=== PATIENT | female | born 1930 | race Caucasian/White ===

== ENCOUNTER 2017-07-07 10:11 | Inpatient (IN) | payer OTHER ==
[~2017-07-07] VITALS: Ht 167.6 cm; Wt 64.9 kg
[2017-07-07 10:11] VITALS: BP_SYST 134
[~2017-07-07 10:11] MED LIST: ACET-1010 PO; AMLO1TAB15 PO; AMLO5TAB4 PO; CAT.1 PO; DIVA500T7 PO; DOCU-144 PO; LEVO150T8 PO; LOSA100T11 PO; NEBI20TA2 PO; NEPH PO; SENN8.6T19 PO
[2017-07-07 10:52] LABS: BASOPHILS # (AUTO) 0.1 K/uL (0.0-0.2); BASOPHILS % (AUTO) 0.4 % (0.0-2.0); EOSINOPHILS # (AUTO) 0.2 K/uL (0.0-0.4); EOSINOPHILS % (AUTO) 1.3 % (0.0-4.0); HEMATOCRIT 25.3 % (36-48); LYMPHOCYTES # (AUTO) 2.6 K/uL (1.0-5.5); LYMPHOCYTES % (AUTO) 18.7 % (20.5-51.5); MEAN CORPUSCULAR HEMOGLOBIN 31 pg (27-31); MEAN CORPUSCULAR HGB CONC 33 % (32-36); MEAN CORPUSCULAR VOLUME 94 fL (79.0-98.0); MONOCYTES # (AUTO) 1.8 K/uL (0.0-1.0); MONOCYTES % (AUTO) 13.3 % (1.7-9.3); NEUTROPHILS # (AUTO) 9.1 K/uL (1.8-7.7); NEUTROPHILS % (AUTO) 66.3 % (40.0-70.0); PLATELET COUNT (AUTO) 527 K/uL (130-430); RED BLOOD CELL COUNT(AUTO) 2.69 MIL/uL (4.2-6.2); WHITE BLOOD COUNT (AUTO) 13.8 K/uL (4.8-10.8)
[2017-07-07 10:53] LABS: HEMOGLOBIN 8.3 g/dL (12.0-16.0)
[2017-07-07 11:03] LABS: PROTHROMBIN TIME 10.6 SECS (9.5-12.5)
[2017-07-07 11:23] LABS: ALANINE AMINOTRANSFERASE 17 U/L (12-78); TOTAL BILIRUBIN 0.2 mg/dL (0.0-1.0)
[2017-07-07 11:24] LABS: ANION GAP 7 (5-15); CALCIUM 9.2 mg/dL (8.4-11.0); CHLORIDE 106 mmol/L (98-107); GLUCOSE 93 mg/dL (70-99); POTASSIUM 5.3 mmol/L (3.5-5.1); SODIUM SERUM 138 mmol/L (136-145); UREA NITROGEN, BLOOD 30 mg/dL (8-21)
[2017-07-07 11:25] LABS: ALBUMIN 1.8 g/dL (3.4-4.8); ASPARTATE AMINOTRANSFERASE 19 U/L (10-37); CREATININE 2.34 mg/dL (0.55-1.30)
[2017-07-07] MEDS ORDERED: LEVOFLOXACIN 500 MG/D5W 100 ML IV ONE (13:45)
[2017-07-07 14:12] VITALS: BP_SYST 119
[2017-07-07] MEDS: NEPHROVITE, (FOLIC ACID/VITAMIN B COMP W-C 1 TAB) PO SCH (16:45)
[2017-07-07] MEDS ORDERED: DOCUSATE SODIUM 100 MG CAPSULE PO SCH (16:45)
[2017-07-07] MEDS: LEVOTHYROXINE SODIUM 0.15 MG TABLET PO SCH (16:45)
[2017-07-07] MEDS ORDERED: SENNOSIDES 8.6 MG TABLET PO PRN (16:45)
[2017-07-07] MEDS: DIVALPROEX SODIUM 500 MG TABLET( DEPAKOTE) PO SCH (16:45)
[2017-07-07] MEDS: ACETAMINOPHEN 500 MG TABLET PO SCH ×2 (16:45→21:48)
[2017-07-07] MEDS ORDERED: IPRATROPIUM/ALBUTEROL SULFATE 3 ML AMPUL.NEB INH PRN (17:00)
[2017-07-07] MEDS ORDERED: SODIUM POLYSTYRENE SULFONATE 15 GM/60 ML UDBTL PO SCH (17:00)
[2017-07-07 17:52] VITALS: BP_SYST 119
[2017-07-07] MEDS: EPOETIN ALFA 4,000 UNITS/ML VIAL SUBCUT SCH (18:26)
[2017-07-07] MEDS: QUEtiapine FUMARATE 25 MG TABLET PO SCH (18:26)
[2017-07-07] MEDS: PIPERACILLIN/TAZO 2.25G/DEX-IS 50 ML IV SCH ×2 (18:33→23:29)
[2017-07-07] MEDS: SOD FERRIC GLUC COMPLEX/SUC 125 MG in NS 100 ML IV SCH (19:17)
[2017-07-07] MEDS: IPRATROPIUM/ALBUTEROL SULFATE 3 ML AMPUL.NEB INH SCH (19:34)
[2017-07-07 20:00] VITALS: BP_SYST 128
[2017-07-07] MEDS: AZITHROMYCIN 500 MG in NS 250 ML IV SCH (21:46)
[2017-07-07] MEDS: DOCUSATE SODIUM 100 MG CAPSULE PO SCH (21:47)
[2017-07-07] MEDS: CARVEDILOL 6.25 MG TABLET (COREG) PO SCH (21:47)
[2017-07-08] MEDS: IPRATROPIUM/ALBUTEROL SULFATE 3 ML AMPUL.NEB INH SCH ×4 (00:32→19:51)
[2017-07-08 04:00] VITALS: BP_SYST 145
[2017-07-08] MEDS: ACETAMINOPHEN 500 MG TABLET PO SCH ×3 (06:11→22:05)
[2017-07-08] MEDS: PIPERACILLIN/TAZO 2.25G/DEX-IS 50 ML IV SCH ×3 (06:11→20:29)
[2017-07-08 07:21] LABS: HEMATOCRIT 22.9 % (36-48); HEMOGLOBIN 7.6 g/dL (12.0-16.0); MEAN CORPUSCULAR HEMOGLOBIN 31 pg (27-31); MEAN CORPUSCULAR HGB CONC 33 % (32-36); MEAN CORPUSCULAR VOLUME 93 fL (79.0-98.0); PLATELET COUNT (AUTO) 504 K/uL (130-430); RED BLOOD CELL COUNT(AUTO) 2.47 MIL/uL (4.2-6.2); RED CELL DISTRIBUTION WIDTH 18.1 % (9.0-15.0)
[2017-07-08 07:32] LABS: ANION GAP 5 (5-15); CALCIUM 8.9 mg/dL (8.4-11.0); CHLORIDE 108 mmol/L (98-107); CREATININE 2.24 mg/dL (0.55-1.30); GLUCOSE 75 mg/dL (70-99); POTASSIUM 5.6 mmol/L (3.5-5.1); SODIUM SERUM 140 mmol/L (136-145); UREA NITROGEN, BLOOD 26 mg/dL (8-21)
[2017-07-08 07:47] LABS: FREE T4 (FREE THYROXINE) 0.5 ng/dl (0.8-1.5); THYROID STIMULATING HORMONE 72.57 uIu/mL (0.36-3.74)
[2017-07-08 07:59] LABS: WHITE BLOOD COUNT (AUTO) 11.4 K/uL (4.8-10.8)
[2017-07-08 08:18] VITALS: BP_SYST 142
[2017-07-08] MEDS: DIVALPROEX SODIUM 500 MG TABLET( DEPAKOTE) PO SCH (08:38)
[2017-07-08] MEDS: CYANOCOBALAMIN 1000 mCg TABLET PO SCH (08:39)
[2017-07-08] MEDS: LOSARTAN POTASSIUM 50 MG TABLET (COZAAR) PO SCH (08:39)
[2017-07-08] MEDS: CHOLECALCIFEROL (VITAMIN D3) 2,000 UNIT TABLET PO SCH (08:39)
[2017-07-08] MEDS: NEPHROVITE, (FOLIC ACID/VITAMIN B COMP W-C 1 TAB) PO SCH (08:40)
[2017-07-08] MEDS: DOCUSATE SODIUM 100 MG CAPSULE PO SCH ×2 (08:40→22:03)
[2017-07-08] MEDS: LEVOTHYROXINE SODIUM 0.15 MG TABLET PO SCH (08:40)
[2017-07-08] MEDS: CARVEDILOL 6.25 MG TABLET (COREG) PO SCH ×2 (08:42→22:03)
[2017-07-08] MEDS ORDERED: cloNIDine HCL 0.1 MG TABLET PO SCH (09:00)
[2017-07-08] MEDS ORDERED: amLODIPine BESYLATE 5 MG TABLET PO SCH (09:00)
[2017-07-08] MEDS ORDERED: NEBIVOLOL HCL 5 MG TABLET PO SCH (09:00)
[2017-07-08 09:29] LABS: ATYPICAL LYMPHOCYTES % 0 % (0-0); BAND % (MANUAL) 0 % (0-6); LYMPHOCYTES % (MANUAL) 31 % (20-46)
[2017-07-08 09:30] LABS: BASOPHILS % (MANUAL) 0 % (0-2); EOSINOPHILS % (MANUAL) 2 % (0-7); MONOCYTES % (MANUAL) 11 % (0-11)
[2017-07-08] MEDS ORDERED: SODIUM POLYSTYRENE SULFONATE 15 GM/60 ML UDBTL RC ONE (11:30)
[2017-07-08 12:00] VITALS: BP_SYST 134
[2017-07-08 17:07] VITALS: BP_SYST 125
[2017-07-08] MEDS: SOD FERRIC GLUC COMPLEX/SUC 125 MG in NS 100 ML IV SCH (18:16)
[2017-07-08] MEDS: QUEtiapine FUMARATE 25 MG TABLET PO SCH (18:16)
[2017-07-08 19:50] VITALS: BP_SYST 139
[2017-07-08] MEDS: AZITHROMYCIN 500 MG in NS 250 ML IV SCH (22:00)
[2017-07-09 00:09] VITALS: BP_SYST 143
[2017-07-09] MEDS: IPRATROPIUM/ALBUTEROL SULFATE 3 ML AMPUL.NEB INH SCH ×4 (00:37→19:40)
[2017-07-09] MEDS: PIPERACILLIN/TAZO 2.25G/DEX-IS 50 ML IV SCH ×4 (01:05→17:52)
[2017-07-09 04:01] VITALS: BP_SYST 142
[2017-07-09] MEDS: ACETAMINOPHEN 500 MG TABLET PO SCH ×3 (06:23→22:29)
[2017-07-09 06:45] LABS: BASOPHILS % (AUTO) 0.4 % (0.0-2.0); EOSINOPHILS # (AUTO) 0.7 K/uL (0.0-0.4); EOSINOPHILS % (AUTO) 5.8 % (0.0-4.0); HEMATOCRIT 27.7 % (36-48); HEMOGLOBIN 9.2 g/dL (12.0-16.0); LYMPHOCYTES # (AUTO) 2.8 K/uL (1.0-5.5); LYMPHOCYTES % (AUTO) 23.4 % (20.5-51.5); MEAN CORPUSCULAR HEMOGLOBIN 31 pg (27-31); MEAN CORPUSCULAR HGB CONC 33 % (32-36); MEAN CORPUSCULAR VOLUME 94 fL (79.0-98.0); MONOCYTES # (AUTO) 1.8 K/uL (0.0-1.0); MONOCYTES % (AUTO) 15.1 % (1.7-9.3); NEUTROPHILS # (AUTO) 6.8 K/uL (1.8-7.7); NEUTROPHILS % (AUTO) 55.3 % (40.0-70.0); PLATELET COUNT (AUTO) 444 K/uL (130-430); RED BLOOD CELL COUNT(AUTO) 2.94 MIL/uL (4.2-6.2); RED CELL DISTRIBUTION WIDTH 17.1 % (9.0-15.0); WHITE BLOOD COUNT (AUTO) 12.1 K/uL (4.8-10.8)
[2017-07-09 06:59] LABS: ANION GAP 7 (5-15); CHLORIDE 107 mmol/L (98-107); CREATININE 2.17 mg/dL (0.55-1.30); GLUCOSE 90 mg/dL (70-99); POTASSIUM 5.1 mmol/L (3.5-5.1); SODIUM SERUM 141 mmol/L (136-145); UREA NITROGEN, BLOOD 25 mg/dL (8-21)
[2017-07-09 07:10] LABS: FREE T4 (FREE THYROXINE) 0.5 ng/dl (0.8-1.5)
[2017-07-09 07:54] LABS: TOTAL IRON BIND. CAPACITY 122 ug/dL (250-450)
[2017-07-09 08:00] VITALS: BP_SYST 110
[2017-07-09] MEDS: LEVOTHYROXINE SODIUM 0.15 MG TABLET PO SCH (08:33)
[2017-07-09] MEDS: CHOLECALCIFEROL (VITAMIN D3) 2,000 UNIT TABLET PO SCH (08:34)
[2017-07-09] MEDS: NEPHROVITE, (FOLIC ACID/VITAMIN B COMP W-C 1 TAB) PO SCH (08:34)
[2017-07-09] MEDS: CYANOCOBALAMIN 1000 mCg TABLET PO SCH (08:34)
[2017-07-09] MEDS: DOCUSATE SODIUM 100 MG CAPSULE PO SCH ×2 (08:34→22:42)
[2017-07-09] MEDS: DIVALPROEX SODIUM 500 MG TABLET( DEPAKOTE) PO SCH (08:34)
[2017-07-09] MEDS: CARVEDILOL 6.25 MG TABLET (COREG) PO SCH ×2 (08:35→22:44)
[2017-07-09] MEDS: LOSARTAN POTASSIUM 50 MG TABLET (COZAAR) PO SCH (08:35)
[2017-07-09 10:04] LABS: RETICULOCYTE COUNT 2.4 % (0.5-1.5)
[2017-07-09 11:36] VITALS: BP_SYST 140
[2017-07-09 17:45] VITALS: BP_SYST 144
[2017-07-09] MEDS: SOD FERRIC GLUC COMPLEX/SUC 125 MG in NS 100 ML IV SCH (17:51)
[2017-07-09] MEDS: EPOETIN ALFA 4,000 UNITS/ML VIAL SUBCUT SCH (17:52)
[2017-07-09] MEDS: QUEtiapine FUMARATE 25 MG TABLET PO SCH (17:53)
[2017-07-09 20:00] VITALS: BP_SYST 138
[2017-07-09] MEDS: AZITHROMYCIN 500 MG in NS 250 ML IV SCH (22:29)
[2017-07-10] VITALS (7 sets, daily range): BP systolic 132–155
[2017-07-10] MEDS: PIPERACILLIN/TAZO 2.25G/DEX-IS 50 ML IV SCH ×4 (00:04→17:58)
[2017-07-10] MEDS: IPRATROPIUM/ALBUTEROL SULFATE 3 ML AMPUL.NEB INH SCH ×4 (00:21→23:02)
[2017-07-10] MEDS: ACETAMINOPHEN 500 MG TABLET PO SCH ×4 (05:22→22:41)
[2017-07-10 07:22] LABS: HEMATOCRIT 28.7 % (36-48); HEMOGLOBIN 9.4 g/dL (12.0-16.0); MEAN CORPUSCULAR HEMOGLOBIN 31 pg (27-31); MEAN CORPUSCULAR HGB CONC 33 % (32-36); MEAN CORPUSCULAR VOLUME 94 fL (79.0-98.0); PLATELET COUNT (AUTO) 446 K/uL (130-430); RED BLOOD CELL COUNT(AUTO) 3.05 MIL/uL (4.2-6.2); RED CELL DISTRIBUTION WIDTH 17.9 % (9.0-15.0); WHITE BLOOD COUNT (AUTO) 13.1 K/uL (4.8-10.8)
[2017-07-10 08:24] LABS: BASOPHILS % (MANUAL) 0 % (0-2); EOSINOPHILS % (MANUAL) 4 % (0-7); LYMPHOCYTES % (MANUAL) 28 % (20-46); MONOCYTES % (MANUAL) 9 % (0-11)
[2017-07-10] MEDS: LEVOTHYROXINE SODIUM 0.1 MG VIAL IVP SCH (09:14)
[2017-07-10] MEDS: NEPHROVITE, (FOLIC ACID/VITAMIN B COMP W-C 1 TAB) PO SCH (09:15)
[2017-07-10] MEDS: DIVALPROEX SODIUM 500 MG TABLET( DEPAKOTE) PO SCH (09:15)
[2017-07-10] MEDS: CHOLECALCIFEROL (VITAMIN D3) 2,000 UNIT TABLET PO SCH (09:15)
[2017-07-10] MEDS: CARVEDILOL 6.25 MG TABLET (COREG) PO SCH ×2 (09:15→22:44)
[2017-07-10] MEDS: DOCUSATE SODIUM 100 MG CAPSULE PO SCH ×2 (09:15→22:37)
[2017-07-10] MEDS: LOSARTAN POTASSIUM 50 MG TABLET (COZAAR) PO SCH (09:16)
[2017-07-10] MEDS: CYANOCOBALAMIN 1000 mCg TABLET PO SCH (09:16)
[2017-07-10 11:23] LABS: BASOPHILS % (AUTO) 0.2 % (0.0-2.0); EOSINOPHILS # (AUTO) 0.6 K/uL (0.0-0.4); EOSINOPHILS % (AUTO) 5.3 % (0.0-4.0); HEMATOCRIT 28.7 % (36-48); HEMOGLOBIN 9.7 g/dL (12.0-16.0); LYMPHOCYTES # (AUTO) 2.5 K/uL (1.0-5.5); LYMPHOCYTES % (AUTO) 21.1 % (20.5-51.5); MEAN CORPUSCULAR HEMOGLOBIN 32 pg (27-31); MEAN CORPUSCULAR HGB CONC 34 % (32-36); MEAN CORPUSCULAR VOLUME 95 fL (79.0-98.0); MONOCYTES # (AUTO) 1.5 K/uL (0.0-1.0); MONOCYTES % (AUTO) 12.6 % (1.7-9.3); NEUTROPHILS # (AUTO) 7.3 K/uL (1.8-7.7); NEUTROPHILS % (AUTO) 60.8 % (40.0-70.0); PLATELET COUNT (AUTO) 423 K/uL (130-430); RED BLOOD CELL COUNT(AUTO) 3.04 MIL/uL (4.2-6.2); WHITE BLOOD COUNT (AUTO) 11.9 K/uL (4.8-10.8)
[2017-07-10 11:27] LABS: ANION GAP 7 (5-15); CALCIUM 8.4 mg/dL (8.4-11.0); CHLORIDE 104 mmol/L (98-107); GLUCOSE 64 mg/dL (70-99); POTASSIUM 4.6 mmol/L (3.5-5.1); SODIUM SERUM 136 mmol/L (136-145); UREA NITROGEN, BLOOD 28 mg/dL (8-21)
[2017-07-10 13:07] LABS: FOLATE (FOLIC ACID) >20.0 ng/mL (>3.0)
[2017-07-10] MEDS ORDERED: FUROSEMIDE 40 MG/4 ML VIAL IVP ONE (14:15)
[2017-07-10 14:45] LABS: FERRITIN 833 ng/mL (15-150)
[2017-07-10] MEDS: QUEtiapine FUMARATE 25 MG TABLET PO SCH (18:30)
[2017-07-10 18:31] LABS: BILIRUBIN,URINE NEGATIVE (NEGATIVE); BLOOD, URINE NEGATIVE (NEGATIVE); CLARITY/URINE CLEAR (CLEAR); GLUCOSE,URINE NEGATIVE (NEGATIVE); KETONES,URINE NEGATIVE (NEGATIVE); LEUKOCYTE ESTERASE ,URINE NEGATIVE (NEGATIVE); NITRITE, URINE NEGATIVE (NEGATIVE); PROTEIN URINE NEGATIVE (NEGATIVE); UROBILINOGEN,URINE 0.2 (0.2-1.0)
[2017-07-10 18:32] LABS: COLOR,URINE STRAW (YELLOW)
[2017-07-10] MEDS: amLODIPine BESYLATE 5 MG TABLET PO SCH (22:41)
[2017-07-10] MEDS: AZITHROMYCIN 500 MG in NS 250 ML IV SCH (22:42)
[2017-07-10] MEDS: LORazepam 2 MG/ML VIAL IVP PRN (23:36)
[2017-07-11] VITALS (7 sets, daily range): BP systolic 120–150
[2017-07-11] MEDS: PIPERACILLIN/TAZO 2.25G/DEX-IS 50 ML IV SCH ×4 (00:54→17:42)
[2017-07-11] MEDS: IPRATROPIUM/ALBUTEROL SULFATE 3 ML AMPUL.NEB INH SCH ×3 (02:12→19:48)
[2017-07-11] MEDS: LORazepam 2 MG/ML VIAL IVP PRN (04:51)
[2017-07-11 06:27] LABS: EOSINOPHILS # (AUTO) 0.6 K/uL (0.0-0.4); LYMPHOCYTES % (AUTO) 21.9 % (20.5-51.5); MONOCYTES # (AUTO) 1.5 K/uL (0.0-1.0)
[2017-07-11 06:36] LABS: BASOPHILS % (AUTO) 0.2 % (0.0-2.0); HEMATOCRIT 29.4 % (36-48); HEMOGLOBIN 9.9 g/dL (12.0-16.0); LYMPHOCYTES # (AUTO) 2.7 K/uL (1.0-5.5); MEAN CORPUSCULAR HEMOGLOBIN 32 pg (27-31); MEAN CORPUSCULAR HGB CONC 34 % (32-36); MEAN CORPUSCULAR VOLUME 94 fL (79.0-98.0); MONOCYTES % (AUTO) 11.8 % (1.7-9.3); NEUTROPHILS # (AUTO) 7.7 K/uL (1.8-7.7); NEUTROPHILS % (AUTO) 61.1 % (40.0-70.0); PLATELET COUNT (AUTO) 410 K/uL (130-430); RED BLOOD CELL COUNT(AUTO) 3.14 MIL/uL (4.2-6.2); WHITE BLOOD COUNT (AUTO) 12.4 K/uL (4.8-10.8)
[2017-07-11 06:55] LABS: ALANINE AMINOTRANSFERASE 18 U/L (12-78); ALBUMIN 1.7 g/dL (3.4-4.8); ANION GAP 9 (5-15); ASPARTATE AMINOTRANSFERASE 28 U/L (10-37); BILIRUBIN,DIRECT 0.1 mg/dL (0.0-0.3); CALCIUM 8.5 mg/dL (8.4-11.0); CHLORIDE 104 mmol/L (98-107); CREATININE 2.18 mg/dL (0.55-1.30); FREE T4 (FREE THYROXINE) 0.5 ng/dl (0.8-1.5); GLUCOSE 75 mg/dL (70-99); LACTATE DEHYDROGENASE 214 U/L (81-234); POTASSIUM 4.4 mmol/L (3.5-5.1); SODIUM SERUM 138 mmol/L (136-145); TOTAL BILIRUBIN 0.2 mg/dL (0.0-1.0)
[2017-07-11 07:20] LABS: UREA NITROGEN, BLOOD 28 mg/dL (8-21)
[2017-07-11] MEDS: DOCUSATE SODIUM 100 MG CAPSULE PO SCH ×2 (09:18→22:58)
[2017-07-11] MEDS: CARVEDILOL 6.25 MG TABLET (COREG) PO SCH ×2 (09:18→23:00)
[2017-07-11] MEDS: DIVALPROEX SODIUM 500 MG TABLET( DEPAKOTE) PO SCH (09:19)
[2017-07-11] MEDS: CHOLECALCIFEROL (VITAMIN D3) 2,000 UNIT TABLET PO SCH (09:19)
[2017-07-11] MEDS: LOSARTAN POTASSIUM 50 MG TABLET (COZAAR) PO SCH (09:19)
[2017-07-11] MEDS: NEPHROVITE, (FOLIC ACID/VITAMIN B COMP W-C 1 TAB) PO SCH (09:19)
[2017-07-11] MEDS: CYANOCOBALAMIN 1000 mCg TABLET PO SCH (09:20)
[2017-07-11] MEDS: LEVOTHYROXINE SODIUM 0.1 MG VIAL IVP SCH (09:23)
[2017-07-11] MEDS: ACETAMINOPHEN 500 MG TABLET PO SCH ×2 (15:21→22:59)
[2017-07-11] MEDS: QUEtiapine FUMARATE 25 MG TABLET PO SCH (17:43)
[2017-07-11] MEDS: EPOETIN ALFA 4,000 UNITS/ML VIAL SUBCUT SCH (18:00)
[2017-07-11] MEDS: amLODIPine BESYLATE 5 MG TABLET PO SCH (22:59)
[2017-07-11] MEDS: AZITHROMYCIN 500 MG in NS 250 ML IV SCH (23:00)
[2017-07-12] MEDS: IPRATROPIUM/ALBUTEROL SULFATE 3 ML AMPUL.NEB INH SCH ×4 (01:13→19:42)
[2017-07-12] MEDS: PIPERACILLIN/TAZO 2.25G/DEX-IS 50 ML IV SCH ×5 (01:17→23:09)
[2017-07-12 03:29] VITALS: BP_SYST 140
[2017-07-12] MEDS: ACETAMINOPHEN 500 MG TABLET PO SCH ×3 (06:15→21:00)
[2017-07-12 06:53] LABS: ANION GAP 9 (5-15); CALCIUM 8.8 mg/dL (8.4-11.0); CHLORIDE 104 mmol/L (98-107); CREATININE 2.19 mg/dL (0.55-1.30); GLUCOSE 79 mg/dL (70-99); POTASSIUM 4.6 mmol/L (3.5-5.1); SODIUM SERUM 136 mmol/L (136-145); UREA NITROGEN, BLOOD 33 mg/dL (8-21)
[2017-07-12 07:39] LABS: BASOPHILS % (AUTO) 0.1 % (0.0-2.0); EOSINOPHILS # (AUTO) 0.6 K/uL (0.0-0.4); EOSINOPHILS % (AUTO) 4.8 % (0.0-4.0); HEMATOCRIT 28.3 % (36-48); HEMOGLOBIN 9.1 g/dL (12.0-16.0); LYMPHOCYTES # (AUTO) 3.1 K/uL (1.0-5.5); LYMPHOCYTES % (AUTO) 24.7 % (20.5-51.5); MEAN CORPUSCULAR HEMOGLOBIN 31 pg (27-31); MEAN CORPUSCULAR HGB CONC 32 % (32-36); MEAN CORPUSCULAR VOLUME 95 fL (79.0-98.0); MONOCYTES # (AUTO) 1.6 K/uL (0.0-1.0); NEUTROPHILS # (AUTO) 7.4 K/uL (1.8-7.7); PLATELET COUNT (AUTO) 402 K/uL (130-430); RED CELL DISTRIBUTION WIDTH 18.2 % (9.0-15.0); WHITE BLOOD COUNT (AUTO) 12.7 K/uL (4.8-10.8)
[2017-07-12 08:20] VITALS: BP_SYST 140
[2017-07-12 08:40] LABS: NEUTROPHILS % (AUTO) 57.4 % (40.0-70.0)
[2017-07-12] MEDS: LEVOTHYROXINE SODIUM 0.1 MG VIAL IVP SCH (08:56)
[2017-07-12] MEDS: LOSARTAN POTASSIUM 50 MG TABLET (COZAAR) PO SCH (08:57)
[2017-07-12] MEDS: CYANOCOBALAMIN 1000 mCg TABLET PO SCH (08:57)
[2017-07-12] MEDS: DIVALPROEX SODIUM 500 MG TABLET( DEPAKOTE) PO SCH (08:57)
[2017-07-12] MEDS: CHOLECALCIFEROL (VITAMIN D3) 2,000 UNIT TABLET PO SCH (08:58)
[2017-07-12] MEDS: DOCUSATE SODIUM 100 MG CAPSULE PO SCH ×2 (08:58→21:00)
[2017-07-12] MEDS: NEPHROVITE, (FOLIC ACID/VITAMIN B COMP W-C 1 TAB) PO SCH (08:58)
[2017-07-12] MEDS: CARVEDILOL 6.25 MG TABLET (COREG) PO SCH ×2 (08:58→21:01)
[2017-07-12] MEDS: cloNIDine HCL 0.2 MG TABLET PO PRN (11:32)
[2017-07-12 11:49] VITALS: BP_SYST 161
[2017-07-12 15:25] VITALS: BP_SYST 152
[2017-07-12] MEDS: QUEtiapine FUMARATE 25 MG TABLET PO SCH ×3 (17:02→17:43)
[2017-07-12 20:00] VITALS: BP_SYST 142
[2017-07-12] MEDS: amLODIPine BESYLATE 5 MG TABLET PO SCH (21:01)
[2017-07-12] MEDS: HEPARIN SODIUM,PORCINE 5000 UNITS/ML VIAL SUBCUT SCH (21:05)
[2017-07-13] VITALS (8 sets, daily range): BP systolic 114–158
[2017-07-13] MEDS: IPRATROPIUM/ALBUTEROL SULFATE 3 ML AMPUL.NEB INH SCH ×4 (01:00→19:48)
[2017-07-13] MEDS: LORazepam 2 MG/ML VIAL IVP PRN (01:50)
[2017-07-13] MEDS: PIPERACILLIN/TAZO 2.25G/DEX-IS 50 ML IV SCH ×3 (05:13→17:35)
[2017-07-13] MEDS: ACETAMINOPHEN 500 MG TABLET PO SCH ×3 (05:13→21:08)
[2017-07-13 07:08] LABS: ALANINE AMINOTRANSFERASE 19 U/L (12-78); ALBUMIN 1.8 g/dL (3.4-4.8); ANION GAP 8 (5-15); ASPARTATE AMINOTRANSFERASE 21 U/L (10-37); CALCIUM 8.8 mg/dL (8.4-11.0); CHLORIDE 105 mmol/L (98-107); CREATININE 2.05 mg/dL (0.55-1.30); GLUCOSE 90 mg/dL (70-99); POTASSIUM 4.5 mmol/L (3.5-5.1); SODIUM SERUM 138 mmol/L (136-145); TOTAL BILIRUBIN 0.2 mg/dL (0.0-1.0); UREA NITROGEN, BLOOD 31 mg/dL (8-21)
[2017-07-13 07:13] LABS: HEMATOCRIT 28.5 % (36-48); HEMOGLOBIN 9.7 g/dL (12.0-16.0); MEAN CORPUSCULAR HEMOGLOBIN 32 pg (27-31); MEAN CORPUSCULAR HGB CONC 34 % (32-36); MEAN CORPUSCULAR VOLUME 95 fL (79.0-98.0); PLATELET COUNT (AUTO) 349 K/uL (130-430); RED BLOOD CELL COUNT(AUTO) 3.01 MIL/uL (4.2-6.2); RED CELL DISTRIBUTION WIDTH 17.4 % (9.0-15.0); WHITE BLOOD COUNT (AUTO) 10.9 K/uL (4.8-10.8)
[2017-07-13] MEDS: CHOLECALCIFEROL (VITAMIN D3) 2,000 UNIT TABLET PO SCH (08:20)
[2017-07-13] MEDS: LOSARTAN POTASSIUM 50 MG TABLET (COZAAR) PO SCH (08:20)
[2017-07-13] MEDS: NEPHROVITE, (FOLIC ACID/VITAMIN B COMP W-C 1 TAB) PO SCH (08:20)
[2017-07-13] MEDS: DOCUSATE SODIUM 100 MG CAPSULE PO SCH ×2 (08:20→21:07)
[2017-07-13] MEDS: DIVALPROEX SODIUM 500 MG TABLET( DEPAKOTE) PO SCH (08:21)
[2017-07-13] MEDS: CYANOCOBALAMIN 1000 mCg TABLET PO SCH (08:21)
[2017-07-13] MEDS: CARVEDILOL 6.25 MG TABLET (COREG) PO SCH ×2 (08:22→21:08)
[2017-07-13] MEDS: HEPARIN SODIUM,PORCINE 5000 UNITS/ML VIAL SUBCUT SCH ×2 (08:42→21:09)
[2017-07-13] MEDS: LEVOTHYROXINE SODIUM 0.1 MG VIAL IVP SCH (08:52)
[2017-07-13 09:31] LABS: BAND % (MANUAL) 4 % (0-6); BASOPHILS % (MANUAL) 0 % (0-2); EOSINOPHILS % (MANUAL) 5 % (0-7); LYMPHOCYTES % (MANUAL) 35 % (20-46); MONOCYTES % (MANUAL) 9 % (0-11)
[2017-07-13] MEDS: QUEtiapine FUMARATE 25 MG TABLET PO SCH (17:08)
[2017-07-13] MEDS: amLODIPine BESYLATE 5 MG TABLET PO SCH (21:08)
[2017-07-14] MEDS: PIPERACILLIN/TAZO 2.25G/DEX-IS 50 ML IV SCH (00:10)
[2017-07-14 00:43] VITALS: BP_SYST 158
[2017-07-14] MEDS: IPRATROPIUM/ALBUTEROL SULFATE 3 ML AMPUL.NEB INH SCH ×4 (01:08→19:51)
[2017-07-14 03:42] VITALS: BP_SYST 160
[2017-07-14] MEDS: ACETAMINOPHEN 500 MG TABLET PO SCH ×3 (06:00→22:17)
[2017-07-14 08:25] VITALS: BP_SYST 153
[2017-07-14] MEDS: DOCUSATE SODIUM 100 MG CAPSULE PO SCH ×2 (10:07→22:17)
[2017-07-14] MEDS: LOSARTAN POTASSIUM 50 MG TABLET (COZAAR) PO SCH (10:07)
[2017-07-14] MEDS: CHOLECALCIFEROL (VITAMIN D3) 2,000 UNIT TABLET PO SCH (10:07)
[2017-07-14] MEDS: CYANOCOBALAMIN 1000 mCg TABLET PO SCH (10:07)
[2017-07-14] MEDS: NEPHROVITE, (FOLIC ACID/VITAMIN B COMP W-C 1 TAB) PO SCH (10:07)
[2017-07-14] MEDS: CARVEDILOL 6.25 MG TABLET (COREG) PO SCH ×2 (10:08→22:20)
[2017-07-14] MEDS: DIVALPROEX SODIUM 500 MG TABLET( DEPAKOTE) PO SCH (10:08)
[2017-07-14] MEDS: HEPARIN SODIUM,PORCINE 5000 UNITS/ML VIAL SUBCUT SCH ×2 (10:10→22:21)
[2017-07-14] MEDS: LEVOTHYROXINE SODIUM 0.1 MG VIAL IVP SCH (10:17)
[2017-07-14 11:30] VITALS: BP_SYST 149
[2017-07-14 15:37] VITALS: BP_SYST 157
[2017-07-14] MEDS: QUEtiapine FUMARATE 25 MG TABLET PO SCH (18:13)
[2017-07-14] MEDS: EPOETIN ALFA 4,000 UNITS/ML VIAL SUBCUT SCH (18:15)
[2017-07-14 20:00] VITALS: BP_SYST 140
[2017-07-14] MEDS: amLODIPine BESYLATE 5 MG TABLET PO SCH (22:19)
[2017-07-15] VITALS (7 sets, daily range): BP systolic 138–185
[2017-07-15] MEDS: IPRATROPIUM/ALBUTEROL SULFATE 3 ML AMPUL.NEB INH SCH ×4 (01:17→20:43)
[2017-07-15] MEDS: ACETAMINOPHEN 500 MG TABLET PO SCH ×3 (05:35→21:59)
[2017-07-15 07:16] LABS: BASOPHILS % (AUTO) 0.4 % (0.0-2.0); EOSINOPHILS # (AUTO) 0.6 K/uL (0.0-0.4); EOSINOPHILS % (AUTO) 4.8 % (0.0-4.0); HEMATOCRIT 30.1 % (36-48); HEMOGLOBIN 10.1 g/dL (12.0-16.0); LYMPHOCYTES % (AUTO) 25.8 % (20.5-51.5); MEAN CORPUSCULAR HEMOGLOBIN 32 pg (27-31); MEAN CORPUSCULAR HGB CONC 33 % (32-36); MEAN CORPUSCULAR VOLUME 95 fL (79.0-98.0); MONOCYTES # (AUTO) 1.5 K/uL (0.0-1.0); MONOCYTES % (AUTO) 12.9 % (1.7-9.3); NEUTROPHILS # (AUTO) 6.5 K/uL (1.8-7.7); NEUTROPHILS % (AUTO) 56.1 % (40.0-70.0); PLATELET COUNT (AUTO) 304 K/uL (130-430); RED BLOOD CELL COUNT(AUTO) 3.17 MIL/uL (4.2-6.2); RED CELL DISTRIBUTION WIDTH 18.3 % (9.0-15.0); WHITE BLOOD COUNT (AUTO) 11.6 K/uL (4.8-10.8)
[2017-07-15 07:54] LABS: ANION GAP 5 (5-15); CALCIUM 9.4 mg/dL (8.4-11.0); CHLORIDE 107 mmol/L (98-107); CREATININE 1.72 mg/dL (0.55-1.30); GLUCOSE 83 mg/dL (70-99); POTASSIUM 4.3 mmol/L (3.5-5.1); SODIUM SERUM 139 mmol/L (136-145); UREA NITROGEN, BLOOD 30 mg/dL (8-21)
[2017-07-15] MEDS: CYANOCOBALAMIN 1000 mCg TABLET PO SCH (08:25)
[2017-07-15] MEDS: LEVOTHYROXINE SODIUM 0.1 MG VIAL IVP SCH (08:25)
[2017-07-15] MEDS: CHOLECALCIFEROL (VITAMIN D3) 2,000 UNIT TABLET PO SCH (08:25)
[2017-07-15] MEDS: NEPHROVITE, (FOLIC ACID/VITAMIN B COMP W-C 1 TAB) PO SCH (08:26)
[2017-07-15] MEDS: DOCUSATE SODIUM 100 MG CAPSULE PO SCH ×2 (08:26→20:44)
[2017-07-15] MEDS: CARVEDILOL 6.25 MG TABLET (COREG) PO SCH ×2 (08:27→20:47)
[2017-07-15] MEDS: LOSARTAN POTASSIUM 50 MG TABLET (COZAAR) PO SCH (08:27)
[2017-07-15] MEDS: HEPARIN SODIUM,PORCINE 5000 UNITS/ML VIAL SUBCUT SCH ×2 (08:30→20:50)
[2017-07-15] MEDS: DIVALPROEX SODIUM 500 MG TABLET( DEPAKOTE) PO SCH (08:33)
[2017-07-15 08:48] LABS: FREE T4 (FREE THYROXINE) 0.5 ng/dl (0.8-1.5)
[2017-07-15 08:49] LABS: THYROID STIMULATING HORMONE 68.83 uIu/mL (0.36-3.74)
[2017-07-15] MEDS: cloNIDine HCL 0.2 MG TABLET PO PRN (15:58)
[2017-07-15] MEDS: QUEtiapine FUMARATE 25 MG TABLET PO SCH (20:02)
[2017-07-15] MEDS: amLODIPine BESYLATE 5 MG TABLET PO SCH (20:48)
[2017-07-16] MEDS: IPRATROPIUM/ALBUTEROL SULFATE 3 ML AMPUL.NEB INH SCH ×4 (01:00→19:45)
[2017-07-16 03:51] VITALS: BP_SYST 122
[2017-07-16] MEDS: ACETAMINOPHEN 500 MG TABLET PO SCH ×3 (06:00→21:05)
[2017-07-16 08:00] VITALS: BP_SYST 143
[2017-07-16] MEDS: DOCUSATE SODIUM 100 MG CAPSULE PO SCH ×2 (10:33→21:05)
[2017-07-16] MEDS: CYANOCOBALAMIN 1000 mCg TABLET PO SCH (10:34)
[2017-07-16] MEDS: DIVALPROEX SODIUM 500 MG TABLET( DEPAKOTE) PO SCH (10:34)
[2017-07-16] MEDS: NEPHROVITE, (FOLIC ACID/VITAMIN B COMP W-C 1 TAB) PO SCH (10:34)
[2017-07-16] MEDS: CHOLECALCIFEROL (VITAMIN D3) 2,000 UNIT TABLET PO SCH (10:34)
[2017-07-16] MEDS: LOSARTAN POTASSIUM 50 MG TABLET (COZAAR) PO SCH (10:35)
[2017-07-16] MEDS: LEVOTHYROXINE SODIUM 0.1 MG VIAL IVP SCH (10:36)
[2017-07-16] MEDS: HEPARIN SODIUM,PORCINE 5000 UNITS/ML VIAL SUBCUT SCH ×2 (10:39→21:08)
[2017-07-16] MEDS: CARVEDILOL 6.25 MG TABLET (COREG) PO SCH ×2 (10:46→21:06)
[2017-07-16] MEDS ORDERED: FLU VACC QS 2017-18(36MOS+)/PF 0.5 ML/SYR SYRINGE I.M. PRN (11:15)
[2017-07-16 13:23] VITALS: BP_SYST 143
[2017-07-16 13:49] VITALS: BP_SYST 143
[2017-07-16 16:32] VITALS: BP_SYST 135
[2017-07-16] MEDS: QUEtiapine FUMARATE 25 MG TABLET PO SCH (18:10)
[2017-07-16] MEDS: EPOETIN ALFA 4,000 UNITS/ML VIAL SUBCUT SCH (18:14)
[2017-07-16] MEDS: LORazepam 2 MG/ML VIAL IVP PRN (19:00)
[2017-07-16] MEDS: amLODIPine BESYLATE 5 MG TABLET PO SCH (21:06)
[2017-07-17] MEDS: IPRATROPIUM/ALBUTEROL SULFATE 3 ML AMPUL.NEB INH SCH ×4 (01:20→20:18)
[2017-07-17 02:08] VITALS: BP_SYST 163
[2017-07-17 03:40] VITALS: BP_SYST 176
[2017-07-17] MEDS: cloNIDine HCL 0.2 MG TABLET PO PRN ×2 (05:02→22:44)
[2017-07-17] MEDS: ACETAMINOPHEN 500 MG TABLET PO SCH ×3 (05:09→22:45)
[2017-07-17 07:53] LABS: EOSINOPHILS # (AUTO) 0.3 K/uL (0.0-0.4); EOSINOPHILS % (AUTO) 2.4 % (0.0-4.0); RED CELL DISTRIBUTION WIDTH 18.3 % (9.0-15.0); WHITE BLOOD COUNT (AUTO) 11.8 K/uL (4.8-10.8)
[2017-07-17 08:00] VITALS: BP_SYST 157
[2017-07-17 08:18] LABS: BASOPHILS % (AUTO) 0.2 % (0.0-2.0); HEMOGLOBIN 9.5 g/dL (12.0-16.0); LYMPHOCYTES # (AUTO) 2.5 K/uL (1.0-5.5); LYMPHOCYTES % (AUTO) 21.5 % (20.5-51.5); MEAN CORPUSCULAR HEMOGLOBIN 32 pg (27-31); MEAN CORPUSCULAR HGB CONC 34 % (32-36); MEAN CORPUSCULAR VOLUME 94 fL (79.0-98.0); MONOCYTES # (AUTO) 0.9 K/uL (0.0-1.0); MONOCYTES % (AUTO) 7.7 % (1.7-9.3); NEUTROPHILS # (AUTO) 8.1 K/uL (1.8-7.7); NEUTROPHILS % (AUTO) 68.2 % (40.0-70.0); PLATELET COUNT (AUTO) 272 K/uL (130-430); RED BLOOD CELL COUNT(AUTO) 2.98 MIL/uL (4.2-6.2)
[2017-07-17 08:42] LABS: ANION GAP 11 (5-15); CALCIUM 9.1 mg/dL (8.4-11.0); CHLORIDE 107 mmol/L (98-107); CREATININE 1.68 mg/dL (0.55-1.30); GLUCOSE 79 mg/dL (70-99); POTASSIUM 3.9 mmol/L (3.5-5.1); SODIUM SERUM 140 mmol/L (136-145); UREA NITROGEN, BLOOD 35 mg/dL (8-21)
[2017-07-17] MEDS: CARVEDILOL 6.25 MG TABLET (COREG) PO SCH ×2 (09:00→22:44)
[2017-07-17] MEDS: NEPHROVITE, (FOLIC ACID/VITAMIN B COMP W-C 1 TAB) PO SCH (09:00)
[2017-07-17] MEDS: CHOLECALCIFEROL (VITAMIN D3) 2,000 UNIT TABLET PO SCH (10:40)
[2017-07-17] MEDS: CYANOCOBALAMIN 1000 mCg TABLET PO SCH (10:40)
[2017-07-17] MEDS: LOSARTAN POTASSIUM 50 MG TABLET (COZAAR) PO SCH (10:41)
[2017-07-17] MEDS: DIVALPROEX SODIUM 500 MG TABLET( DEPAKOTE) PO SCH (10:42)
[2017-07-17] MEDS: DOCUSATE SODIUM 100 MG CAPSULE PO SCH ×2 (10:42→22:43)
[2017-07-17] MEDS: LEVOTHYROXINE SODIUM 0.1 MG VIAL IVP SCH (10:43)
[2017-07-17] MEDS: HEPARIN SODIUM,PORCINE 5000 UNITS/ML VIAL SUBCUT SCH ×2 (10:45→22:42)
[2017-07-17 12:50] VITALS: BP_SYST 157
[2017-07-17 16:24] VITALS: BP_SYST 159
[2017-07-17] MEDS: QUEtiapine FUMARATE 25 MG TABLET PO SCH (18:43)
[2017-07-17 20:00] VITALS: BP_SYST 179
[2017-07-17] MEDS: amLODIPine BESYLATE 5 MG TABLET PO SCH (22:43)
[2017-07-18 00:28] VITALS: BP_SYST 120
[2017-07-18] MEDS: IPRATROPIUM/ALBUTEROL SULFATE 3 ML AMPUL.NEB INH SCH ×5 (01:36→23:55)
[2017-07-18] MEDS: ACETAMINOPHEN 500 MG TABLET PO SCH ×3 (06:55→22:15)
[2017-07-18] MEDS: CYANOCOBALAMIN 1000 mCg TABLET PO SCH (08:33)
[2017-07-18] MEDS: DOCUSATE SODIUM 100 MG CAPSULE PO SCH ×2 (08:33→22:19)
[2017-07-18] MEDS: LOSARTAN POTASSIUM 50 MG TABLET (COZAAR) PO SCH (08:34)
[2017-07-18] MEDS: CHOLECALCIFEROL (VITAMIN D3) 2,000 UNIT TABLET PO SCH (08:35)
[2017-07-18] MEDS: DIVALPROEX SODIUM 500 MG TABLET( DEPAKOTE) PO SCH (08:35)
[2017-07-18] MEDS: NEPHROVITE, (FOLIC ACID/VITAMIN B COMP W-C 1 TAB) PO SCH (08:35)
[2017-07-18] MEDS: LEVOTHYROXINE SODIUM 0.1 MG VIAL IVP SCH (09:00)
[2017-07-18] MEDS: CARVEDILOL 6.25 MG TABLET (COREG) PO SCH ×2 (09:00→22:19)
[2017-07-18] MEDS: HEPARIN SODIUM,PORCINE 5000 UNITS/ML VIAL SUBCUT SCH ×2 (09:00→22:20)
[2017-07-18 12:52] VITALS: BP_SYST 151
[2017-07-18 16:18] VITALS: BP_SYST 167
[2017-07-18] MEDS ORDERED: HALOPERIDOL LACTATE 5 MG/ML VIAL IM PRN (17:15)
[2017-07-18] MEDS: QUEtiapine FUMARATE 25 MG TABLET PO SCH (18:10)
[2017-07-18] MEDS: D5LR 1,000 ML IV SCH (18:11)
[2017-07-18] MEDS: EPOETIN ALFA 4,000 UNITS/ML VIAL SUBCUT SCH (18:13)
[2017-07-18 20:15] VITALS: BP_SYST 176
[2017-07-18] MEDS: LORazepam 2 MG/ML VIAL IVP PRN (22:15)
[2017-07-18] MEDS: cloNIDine HCL 0.2 MG TABLET PO PRN (22:18)
[2017-07-18] MEDS: amLODIPine BESYLATE 5 MG TABLET PO SCH (22:18)
[2017-07-19] VITALS (7 sets, daily range): BP systolic 114–173
[2017-07-19] MEDS: ACETAMINOPHEN 500 MG TABLET PO SCH ×3 (06:49→22:00)
[2017-07-19] MEDS: LORazepam 2 MG/ML VIAL IVP PRN ×2 (06:49→22:03)
[2017-07-19 07:20] LABS: HEMATOCRIT 28.5 % (36-48); HEMOGLOBIN 9.9 g/dL (12.0-16.0); MEAN CORPUSCULAR HEMOGLOBIN 33 pg (27-31); MEAN CORPUSCULAR HGB CONC 35 % (32-36); MEAN CORPUSCULAR VOLUME 94 fL (79.0-98.0); PLATELET COUNT (AUTO) 260 K/uL (130-430); RED BLOOD CELL COUNT(AUTO) 3.03 MIL/uL (4.2-6.2); RED CELL DISTRIBUTION WIDTH 18.6 % (9.0-15.0); WHITE BLOOD COUNT (AUTO) 12.5 K/uL (4.8-10.8)
[2017-07-19] MEDS: IPRATROPIUM/ALBUTEROL SULFATE 3 ML AMPUL.NEB INH SCH ×3 (07:24→19:57)
[2017-07-19 09:08] LABS: BAND % (MANUAL) 3 % (0-6); BASOPHILS % (MANUAL) 0 % (0-2); EOSINOPHILS % (MANUAL) 3 % (0-7); LYMPHOCYTES % (MANUAL) 12 % (20-46); MONOCYTES % (MANUAL) 9 % (0-11)
[2017-07-19 09:09] LABS: METAMYELOCYTES % 0 % (0-0); MYELOCYTES % 0 % (0-0)
[2017-07-19] MEDS: DIVALPROEX SODIUM 500 MG TABLET( DEPAKOTE) PO SCH (09:16)
[2017-07-19] MEDS: CHOLECALCIFEROL (VITAMIN D3) 2,000 UNIT TABLET PO SCH (09:16)
[2017-07-19] MEDS: CARVEDILOL 6.25 MG TABLET (COREG) PO SCH ×2 (09:17→21:48)
[2017-07-19] MEDS: LOSARTAN POTASSIUM 50 MG TABLET (COZAAR) PO SCH (09:17)
[2017-07-19] MEDS: CYANOCOBALAMIN 1000 mCg TABLET PO SCH (09:17)
[2017-07-19] MEDS: DOCUSATE SODIUM 100 MG CAPSULE PO SCH ×2 (09:18→21:47)
[2017-07-19] MEDS: NEPHROVITE, (FOLIC ACID/VITAMIN B COMP W-C 1 TAB) PO SCH (09:18)
[2017-07-19] MEDS: LEVOTHYROXINE SODIUM 0.1 MG VIAL IVP SCH (09:19)
[2017-07-19] MEDS: HEPARIN SODIUM,PORCINE 5000 UNITS/ML VIAL SUBCUT SCH ×2 (09:30→21:49)
[2017-07-19] MEDS: D5LR 1,000 ML IV SCH (12:07)
[2017-07-19] MEDS: QUEtiapine FUMARATE 25 MG TABLET PO SCH (17:21)
[2017-07-19] MEDS: amLODIPine BESYLATE 5 MG TABLET PO SCH (21:48)
[2017-07-20 00:30] VITALS: BP_SYST 155
[2017-07-20] MEDS: IPRATROPIUM/ALBUTEROL SULFATE 3 ML AMPUL.NEB INH SCH ×4 (01:21→19:37)
[2017-07-20 03:37] VITALS: BP_SYST 151
[2017-07-20] MEDS: D5LR 1,000 ML IV SCH ×2 (05:07→14:53)
[2017-07-20] MEDS: ACETAMINOPHEN 500 MG TABLET PO SCH ×3 (05:27→21:19)
[2017-07-20 07:31] LABS: HEMATOCRIT 27.8 % (36-48); HEMOGLOBIN 9.6 g/dL (12.0-16.0); MEAN CORPUSCULAR HEMOGLOBIN 33 pg (27-31); MEAN CORPUSCULAR HGB CONC 35 % (32-36); MEAN CORPUSCULAR VOLUME 96 fL (79.0-98.0); PLATELET COUNT (AUTO) 270 K/uL (130-430); RED BLOOD CELL COUNT(AUTO) 2.91 MIL/uL (4.2-6.2); RED CELL DISTRIBUTION WIDTH 19.1 % (9.0-15.0); WHITE BLOOD COUNT (AUTO) 11.4 K/uL (4.8-10.8)
[2017-07-20 08:00] VITALS: BP_SYST 158
[2017-07-20 08:20] LABS: ALANINE AMINOTRANSFERASE 15 U/L (12-78); ALBUMIN 1.7 g/dL (3.4-4.8); ANION GAP 10 (5-15); ASPARTATE AMINOTRANSFERASE 22 U/L (10-37); CALCIUM 8.9 mg/dL (8.4-11.0); CHLORIDE 106 mmol/L (98-107); GLUCOSE 77 mg/dL (70-99); POTASSIUM 4.3 mmol/L (3.5-5.1); SODIUM SERUM 138 mmol/L (136-145); THYROID STIMULATING HORMONE 52.39 uIu/mL (0.34-4.82); TOTAL BILIRUBIN 0.1 mg/dL (0.0-1.0); UREA NITROGEN, BLOOD 31 mg/dL (8-21)
[2017-07-20] MEDS: CHOLECALCIFEROL (VITAMIN D3) 2,000 UNIT TABLET PO SCH (08:57)
[2017-07-20] MEDS: NEPHROVITE, (FOLIC ACID/VITAMIN B COMP W-C 1 TAB) PO SCH (08:57)
[2017-07-20] MEDS: DIVALPROEX SODIUM 500 MG TABLET( DEPAKOTE) PO SCH (08:57)
[2017-07-20] MEDS: CYANOCOBALAMIN 1000 mCg TABLET PO SCH (08:57)
[2017-07-20] MEDS: DOCUSATE SODIUM 100 MG CAPSULE PO SCH ×2 (08:58→21:19)
[2017-07-20] MEDS: LOSARTAN POTASSIUM 50 MG TABLET (COZAAR) PO SCH (08:58)
[2017-07-20] MEDS: CARVEDILOL 6.25 MG TABLET (COREG) PO SCH ×2 (08:59→21:26)
[2017-07-20] MEDS: HEPARIN SODIUM,PORCINE 5000 UNITS/ML VIAL SUBCUT SCH ×2 (09:01→21:21)
[2017-07-20 09:48] LABS: BASOPHILS % (MANUAL) 0 % (0-2); EOSINOPHILS % (MANUAL) 3 % (0-7); LYMPHOCYTES % (MANUAL) 24 % (20-46); MONOCYTES % (MANUAL) 2 % (0-11)
[2017-07-20] MEDS: LEVOTHYROXINE SODIUM 0.1 MG VIAL IVP SCH (10:44)
[2017-07-20 11:21] LABS: HEPATITIS B CORE AB, TOTAL Negative (Negative); HEPATITIS B SURFACE AG Negative (Negative); HEPATITIS C VIRUS AB <0.1 s/co ratio (0.0-0.9)
[2017-07-20 15:31] VITALS: BP_SYST 162
[2017-07-20] MEDS: QUEtiapine FUMARATE 25 MG TABLET PO SCH (18:06)
[2017-07-20 19:20] VITALS: BP_SYST 165
[2017-07-20] MEDS: amLODIPine BESYLATE 5 MG TABLET PO SCH (21:25)
[2017-07-20 23:38] VITALS: BP_SYST 125
[2017-07-21] MEDS: IPRATROPIUM/ALBUTEROL SULFATE 3 ML AMPUL.NEB INH SCH ×4 (01:00→19:47)
[2017-07-21] MEDS: cloNIDine HCL 0.2 MG TABLET PO PRN ×2 (02:54→20:46)
[2017-07-21] MEDS: D5LR 1,000 ML IV SCH (02:55)
[2017-07-21 04:17] VITALS: BP_SYST 173
[2017-07-21] MEDS: ACETAMINOPHEN 500 MG TABLET PO SCH ×2 (05:15→22:00)
[2017-07-21 07:35] LABS: ANION GAP 11 (5-15); CALCIUM 9.4 mg/dL (8.4-11.0); CHLORIDE 109 mmol/L (98-107); CREATININE 1.54 mg/dL (0.55-1.30); GLUCOSE 91 mg/dL (70-99); POTASSIUM 4.4 mmol/L (3.5-5.1); SODIUM SERUM 141 mmol/L (136-145); UREA NITROGEN, BLOOD 27 mg/dL (8-21)
[2017-07-21 08:12] LABS: BASOPHILS % (AUTO) 0.3 % (0.0-2.0); EOSINOPHILS # (AUTO) 0.2 K/uL (0.0-0.4); EOSINOPHILS % (AUTO) 2.1 % (0.0-4.0); HEMATOCRIT 31.9 % (36-48); HEMOGLOBIN 10.8 g/dL (12.0-16.0); LYMPHOCYTES # (AUTO) 2.9 K/uL (1.0-5.5); LYMPHOCYTES % (AUTO) 24.8 % (20.5-51.5); MEAN CORPUSCULAR HEMOGLOBIN 32 pg (27-31); MEAN CORPUSCULAR HGB CONC 34 % (32-36); MEAN CORPUSCULAR VOLUME 95 fL (79.0-98.0); MONOCYTES # (AUTO) 1.2 K/uL (0.0-1.0); MONOCYTES % (AUTO) 10.6 % (1.7-9.3); NEUTROPHILS # (AUTO) 7.4 K/uL (1.8-7.7); NEUTROPHILS % (AUTO) 62.2 % (40.0-70.0); PLATELET COUNT (AUTO) 335 K/uL (130-430); RED BLOOD CELL COUNT(AUTO) 3.35 MIL/uL (4.2-6.2); RED CELL DISTRIBUTION WIDTH 18.5 % (9.0-15.0)
[2017-07-21 08:33] LABS: WHITE BLOOD COUNT (AUTO) 11.7 K/uL (4.8-10.8)
[2017-07-21] MEDS: NEPHROVITE, (FOLIC ACID/VITAMIN B COMP W-C 1 TAB) PO SCH (09:37)
[2017-07-21] MEDS: DOCUSATE SODIUM 100 MG CAPSULE PO SCH ×2 (09:37→20:31)
[2017-07-21] MEDS: HEPARIN SODIUM,PORCINE 5000 UNITS/ML VIAL SUBCUT SCH ×2 (09:37→20:33)
[2017-07-21] MEDS: CYANOCOBALAMIN 1000 mCg TABLET PO SCH (09:38)
[2017-07-21] MEDS: CHOLECALCIFEROL (VITAMIN D3) 2,000 UNIT TABLET PO SCH (09:38)
[2017-07-21] MEDS: CARVEDILOL 6.25 MG TABLET (COREG) PO SCH ×2 (09:38→20:33)
[2017-07-21] MEDS: DIVALPROEX SODIUM 500 MG TABLET( DEPAKOTE) PO SCH (09:38)
[2017-07-21] MEDS: LOSARTAN POTASSIUM 50 MG TABLET (COZAAR) PO SCH (09:39)
[2017-07-21] MEDS: LEVOTHYROXINE SODIUM 0.1 MG VIAL IVP SCH (09:43)
[2017-07-21] MEDS ORDERED: FUROSEMIDE 20 MG/2 ML VIAL IVP ONE (10:15)
[2017-07-21] MEDS: LORazepam 2 MG/ML VIAL IVP PRN (10:51)
[2017-07-21] MEDS: 0.45% NACL 1,000 ML IV SCH (10:56)
[2017-07-21 10:59] VITALS: BP_SYST 139
[2017-07-21] MEDS ORDERED: LORazepam 2 MG/ML VIAL ONE (11:00)
[2017-07-21 12:19] VITALS: BP_SYST 151
[2017-07-21] MEDS ORDERED: ANTIFUNGAL CLEAR OINTMENT TP SCH (13:30)
[2017-07-21] MEDS: QUEtiapine FUMARATE 25 MG TABLET PO SCH (17:43)
[2017-07-21] MEDS: EPOETIN ALFA 4,000 UNITS/ML VIAL SUBCUT SCH (17:43)
[2017-07-21 18:51] VITALS: BP_SYST 150
[2017-07-21 19:50] VITALS: BP_SYST 160
[2017-07-21] MEDS: amLODIPine BESYLATE 5 MG TABLET PO SCH (20:32)
[2017-07-22] VITALS (7 sets, daily range): BP systolic 126–174
[2017-07-22] MEDS: IPRATROPIUM/ALBUTEROL SULFATE 3 ML AMPUL.NEB INH SCH ×4 (01:00→19:49)
[2017-07-22 08:01] LABS: BASOPHILS % (AUTO) 0.4 % (0.0-2.0); EOSINOPHILS # (AUTO) 0.2 K/uL (0.0-0.4); EOSINOPHILS % (AUTO) 1.6 % (0.0-4.0); HEMATOCRIT 26.7 % (36-48); HEMOGLOBIN 9.1 g/dL (12.0-16.0); LYMPHOCYTES # (AUTO) 2.6 K/uL (1.0-5.5); LYMPHOCYTES % (AUTO) 27.8 % (20.5-51.5); MEAN CORPUSCULAR HEMOGLOBIN 32 pg (27-31); MEAN CORPUSCULAR HGB CONC 34 % (32-36); MEAN CORPUSCULAR VOLUME 95 fL (79.0-98.0); MONOCYTES # (AUTO) 1.1 K/uL (0.0-1.0); MONOCYTES % (AUTO) 12.1 % (1.7-9.3); NEUTROPHILS # (AUTO) 5.5 K/uL (1.8-7.7); PLATELET COUNT (AUTO) 266 K/uL (130-430); RED CELL DISTRIBUTION WIDTH 19.1 % (9.0-15.0); WHITE BLOOD COUNT (AUTO) 9.4 K/uL (4.8-10.8)
[2017-07-22] MEDS: ACETAMINOPHEN 500 MG TABLET PO SCH ×2 (09:13→14:00)
[2017-07-22] MEDS: CHOLECALCIFEROL (VITAMIN D3) 2,000 UNIT TABLET PO SCH (09:32)
[2017-07-22] MEDS: NEPHROVITE, (FOLIC ACID/VITAMIN B COMP W-C 1 TAB) PO SCH (09:32)
[2017-07-22] MEDS: DOCUSATE SODIUM 100 MG CAPSULE PO SCH (09:32)
[2017-07-22] MEDS: CYANOCOBALAMIN 1000 mCg TABLET PO SCH (09:33)
[2017-07-22] MEDS: LOSARTAN POTASSIUM 50 MG TABLET (COZAAR) PO SCH (09:33)
[2017-07-22] MEDS: CARVEDILOL 6.25 MG TABLET (COREG) PO SCH ×2 (09:33→21:00)
[2017-07-22] MEDS: LEVOTHYROXINE SODIUM 0.1 MG VIAL IVP SCH (09:34)
[2017-07-22] MEDS: DIVALPROEX SODIUM 500 MG TABLET( DEPAKOTE) PO SCH (09:34)
[2017-07-22] MEDS: HEPARIN SODIUM,PORCINE 5000 UNITS/ML VIAL SUBCUT SCH (09:35)
[2017-07-22] MEDS: 0.45% NACL 1,000 ML IV SCH (09:40)
[2017-07-22 09:42] LABS: ANION GAP 11 (5-15); CHLORIDE 108 mmol/L (98-107); CREATININE 1.49 mg/dL (0.55-1.30); GLUCOSE 75 mg/dL (70-99); POTASSIUM 4.1 mmol/L (3.5-5.1); SODIUM SERUM 138 mmol/L (136-145); UREA NITROGEN, BLOOD 29 mg/dL (8-21)
[2017-07-22 11:46] LABS: NEUTROPHILS % (AUTO) 58.1 % (40.0-70.0)
[2017-07-22] MEDS: cloNIDine HCL 0.2 MG TABLET PO PRN (15:06)
[2017-07-22] MEDS: QUEtiapine FUMARATE 25 MG TABLET PO SCH (18:32)
[2017-07-22] MEDS: amLODIPine BESYLATE 5 MG TABLET PO SCH (21:00)
[2017-07-23 00:56] VITALS: BP_SYST 153
[2017-07-23] MEDS: IPRATROPIUM/ALBUTEROL SULFATE 3 ML AMPUL.NEB INH SCH ×3 (01:00→13:17)
[2017-07-23] MEDS: cloNIDine HCL 0.2 MG TABLET PO PRN (03:54)
[2017-07-23 04:47] VITALS: BP_SYST 189
[2017-07-23] MEDS: DOCUSATE SODIUM 100 MG CAPSULE PO SCH ×2 (04:52→10:06)
[2017-07-23] MEDS: ACETAMINOPHEN 500 MG TABLET PO SCH ×3 (06:00→14:50)
[2017-07-23 07:40] LABS: BASOPHILS % (AUTO) 0.4 % (0.0-2.0); EOSINOPHILS # (AUTO) 0.1 K/uL (0.0-0.4); EOSINOPHILS % (AUTO) 1.5 % (0.0-4.0); HEMATOCRIT 28.3 % (36-48); HEMOGLOBIN 9.6 g/dL (12.0-16.0); LYMPHOCYTES # (AUTO) 2.6 K/uL (1.0-5.5); LYMPHOCYTES % (AUTO) 29.5 % (20.5-51.5); MEAN CORPUSCULAR HEMOGLOBIN 32 pg (27-31); MEAN CORPUSCULAR HGB CONC 34 % (32-36); MEAN CORPUSCULAR VOLUME 96 fL (79.0-98.0); MONOCYTES # (AUTO) 1.1 K/uL (0.0-1.0); NEUTROPHILS % (AUTO) 55.6 % (40.0-70.0); PLATELET COUNT (AUTO) 259 K/uL (130-430); RED BLOOD CELL COUNT(AUTO) 2.96 MIL/uL (4.2-6.2); RED CELL DISTRIBUTION WIDTH 18.5 % (9.0-15.0); WHITE BLOOD COUNT (AUTO) 8.8 K/uL (4.8-10.8)
[2017-07-23 08:39] VITALS: BP_SYST 157
[2017-07-23] MEDS: CHOLECALCIFEROL (VITAMIN D3) 2,000 UNIT TABLET PO SCH (10:02)
[2017-07-23] MEDS: NEPHROVITE, (FOLIC ACID/VITAMIN B COMP W-C 1 TAB) PO SCH (10:02)
[2017-07-23] MEDS: CARVEDILOL 6.25 MG TABLET (COREG) PO SCH (10:03)
[2017-07-23] MEDS: LOSARTAN POTASSIUM 50 MG TABLET (COZAAR) PO SCH (10:06)
[2017-07-23] MEDS: DIVALPROEX SODIUM 500 MG TABLET( DEPAKOTE) PO SCH (10:06)
[2017-07-23] MEDS: LEVOTHYROXINE SODIUM 0.1 MG VIAL IVP SCH ×2 (10:07→10:16)
[2017-07-23] MEDS: CYANOCOBALAMIN 1000 mCg TABLET PO SCH (10:13)
[2017-07-23] MEDS: HEPARIN SODIUM,PORCINE 5000 UNITS/ML VIAL SUBCUT SCH (10:15)
[2017-07-23] MEDS: 0.45% NACL 1,000 ML IV SCH (10:25)
[2017-07-23 11:57] VITALS: BP_SYST 147
[2017-07-23 15:53] VITALS: BP_SYST 147
[2017-07-24] MEDS ORDERED: LEVOTHYROXINE SODIUM 0.15 MG TABLET PO SCH (07:00)
== END 2017-07-23 16:13 | DRG 682 ==
LOC: SED 10:11 → STU 13:53 → SMU 07-10 11:00
PROVIDERS: ADMIT Internal Medicine; ATTEND Internal Medicine
PROC: 30233N1 Transfusion of Nonautologous Red Blood Cells into Peripheral Vein, Percutaneous Approach (ICD-10-PCS; 2017-07-08)
PROC: 0WJ93ZZ Inspection of Right Pleural Cavity, Percutaneous Approach (ICD-10-PCS; principal; 2017-07-10)
DX: N17.0 Acute kidney failure with tubular necrosis (principal); J18.9 Pneumonia, unspecified organism; E43 Unspecified severe protein-calorie malnutrition; J86.9 Pyothorax without fistula; G93.41 Metabolic encephalopathy; J90 Pleural effusion, not elsewhere classified; I13.0 Hypertensive heart and chronic kidney disease with heart failure and stage 1 through stage 4 chronic kidney disease, or unspecified chronic kidney disease; I50.32 Chronic diastolic (congestive) heart failure; D63.1 Anemia in chronic kidney disease; N18.9 Chronic kidney disease, unspecified; K57.90 Diverticulosis of intestine, part unspecified, without perforation or abscess without bleeding; J44.9 Chronic obstructive pulmonary disease, unspecified; I08.1 Rheumatic disorders of both mitral and tricuspid valves; F31.9 Bipolar disorder, unspecified; E87.5 Hyperkalemia; I27.2 Other secondary pulmonary hypertension; E03.9 Hypothyroidism, unspecified; I25.10 Atherosclerotic heart disease of native coronary artery without angina pectoris; E88.09 Other disorders of plasma-protein metabolism, not elsewhere classified; F03.90 Unspecified dementia, unspecified severity, without behavioral disturbance, psychotic disturbance, mood disturbance, and anxiety; F29 Unspecified psychosis not due to a substance or known physiological condition; F41.9 Anxiety disorder, unspecified; W19.XXXA Unspecified fall, initial encounter; Y93.89 Activity, other specified; Y92.128 Other place in nursing home as the place of occurrence of the external cause; Y99.8 Other external cause status; I25.2 Old myocardial infarction; Z78.1 Physical restraint status; Z79.899 Other long term (current) drug therapy; Z87.891 Personal history of nicotine dependence
CPT/HCPCS: 32555; 36415; 70450-TC; 71010; 71250-TC; 72125-TC; 80048; 80053; 80076; 81003; 82272; 82550-TC; 82607; 82728; 82746; 83540-TC; 83550-TC; 83605; 83615-TC; 83880; 84439; 84443-TC; 84484; 85007; 85025; 85027; 85044-TC; 85610-TC; 85730-TC; 86704; 86706; 86803; 86886; 86900; 86901; 86920; 87040-TC; 87081; 87340; 92610-GN; 93005; 94640; 94760; 97110-GP; 97116-GP; 97530-GP; 99285; C1729; J0456; J0885; J1630; J1644; J1940; J1956; J2060; J2543; J2916; J7040; J7042; J7050; J7120; P9021; Q2037